=== PATIENT | female | born 1990 | race Two or more races ===

== ENCOUNTER 2022-12-19 17:54 | Emergency (ER) | payer OTHER ==
[~2022-12-19] VITALS: Ht 167.6 cm; Wt 68.0 kg
[2022-12-20] MEDS ORDERED: IBUPROFEN 600MG TABLET PO ONE (02:30)
[2022-12-20 02:45] VITALS: BP 117/69
[2022-12-20] MEDS ORDERED: IBUP-2029 MT (04:05)
== END 2022-12-20 04:30 | disposition home or self-care (01) ==
LOC: ER 18:07
DX: R07.89 Other chest pain (principal)
CPT/HCPCS: 71045; 81025; 93005; 99283

== ENCOUNTER 2025-08-17 21:06 | Emergency (ER) | payer MEDICAID, OTHER ==
[~2025-08-17] VITALS: Ht 152.4 cm; Wt 67.0 kg
[~2025-08-17 21:06] MED LIST: IBUP-1455 MT
[2025-08-17 21:07] VITALS: O2SAT 99
[2025-08-17 21:49] VITALS: BP 141/87; PULSE 55; RESP 18; TEMP 36.7; O2SAT 99
[2025-08-17] MEDS ORDERED: ACET-2708 MT (23:26)
== END 2025-08-18 00:14 | disposition home or self-care (01) ==
LOC: ER 21:06
DX: M79.645 Pain in left finger(s) (principal); I10 Essential (primary) hypertension
CPT/HCPCS: 29130; 73120; 99283